=== PATIENT | female | born 1955 | race Caucasian/White ===

== ENCOUNTER 2016-08-03 17:50 | Emergency (ER) | payer OTHER ==
[~2016-08-03] VITALS: Ht 154.9 cm; Wt 88.0 kg
[~2016-08-03 17:50] MED LIST: ALEVE220 MG; ASPIRIN325; BACTRIM DS TAB1 EACH PO; IBUPROFEN200 M2 PO; LAMOTRIGINE200 MG PO; NORCO 5-325 TA1 EACH PO; PHENTERMINE H37.5 MG PO
[2016-08-03 18:43] LABS: ABSOLUTE NEUTROPHILS 8.5 thou/uL (1.4-8.2); BASOPHILS 0.7 % (0.0-2.0); EOSINOPHILS 6.1 % (0.0-3.0); HEMATOCRIT 37.1 % (37.0-47.0); LYMPHOCYTES 18.7 % (24.0-44.0); MCH 29.5 pg (26.0-34.0); MCHC 32.4 g/dL (28.0-37.0); MCV 91.2 fL (80.0-100.0); MONOCYTES 6.3 % (1.0-8.0); PLATELET COUNT 305 thou/uL (150-400); POLYS 68.2 % (36.0-66.0); RBC 4.07 mil/uL (4.20-5.00); RDW 12.5 % (10.5-14.5); WBC 12.4 thou/uL (4.0-11.0)
[2016-08-03 18:44] LABS: MANUAL DIFF NO
[2016-08-03 18:51] LABS: CALCIUM 9.3 mg/dL (8.5-10.1); CREATININE 0.7 mg/dL (0.6-1.0); POTASSIUM 3.4 mmol/L (3.5-5.1)
[2016-08-03] MEDS ORDERED: IBUPROFEN 600600 M1 PO (20:17)
[2016-08-03] MEDS ORDERED: NORCO 5-325 TA1 EACH PO (20:17)
[2016-08-03 20:48] VITALS: BP 134/50
== END 2016-08-03 20:49 | disposition home or self-care (01) ==
LOC: ER 17:50
PROVIDERS: Nurse Practitioner
DX: S80.01XA Contusion of right knee, initial encounter (principal); M25.551 Pain in right hip; F10.99 Alcohol use, unspecified with unspecified alcohol-induced disorder; W18.39XA Other fall on same level, initial encounter; Y93.89 Activity, other specified; Y92.480 Sidewalk as the place of occurrence of the external cause; Y99.8 Other external cause status

== ENCOUNTER → 2016-08-17 | Outpatient (CLI) | payer BC, OTHER ==
[~2016-08-17] MED LIST changes: +IBUPROFEN 600600 M1 PO
--- NOTE | ~2016-08-17 | CNG ---
[facility] [place] [address] CYTO-NONGYN REPORT PROCEDURE Name: SARY RAMOS Room #: REG [facility] Delores#: [id number] Admission: 08/17/16 Date of : 51 Discharge: Report #: [id number] Path Case #: [id number] CYTOPATHOLOGY REPORT COLLECTION DATE: 08/17/2016 RECEIVED DATE: 08/17/2016 SUBMITTING PHYS: Dr. Gus Fletcher OTHER PHYS: Dr. Oleg Muñoz CLINICAL HISTORY: Cath/Bronchoscopy/Cough/ Lung mass, R/O TB SPECIMEN(S) RECEIVED: A.Bronchoalveolar lavage, RUL * * * * * * * * * * * * FINAL DIAGNOSIS: A. Lung, RUL, Bronchoalveolar lavage: - No malignant cells identified. Pulmonary macrophages, bronchial cells and inflammation identified. PATHOLOGIST: Yelitza Go M.D. REPORT ELECTRONICALLY SIGNED BY: Yelitza Go M.D. DATE/TIME: 08/18/2016 11:25 * * * * * * * * * * * * GROSS PATHOLOGY: A. Bronchoalveolar lavage, RUL: The specimen is submitted unfixed, labeled "Isela Fontana". Received by the Cytology Department is 15 mL of cloudy colorless fluid. One ThinPrep slide was prepared. (mm 08.17.2016) NATUROPATHIC DOCTOR(S): [facility]UNIOR Jovel[facility] INITIAL CPT CODE(S): A; 37529 Professional services performed by [facility] at [facility] [address], [place] [address] Technical services performed by [facility] at [address] [place] [address]., [address], [place] [address]. [facility] [address] [place] [address], [facility] [address] [place] [address] PHONE: [phone] [facility] [address] [place] [address] CYTO-NONGYN REPORT PROCEDURE Name: SARY RAMOS Room #: REG MILY Hernandez.#: [id number] Admission: 08/17/16 Date of : 51 Discharge: Report #: [id number] Path Case #: [id number] DIRECTOR: Danny Hsu M.D. * * * END OF REPORT * * *
--- NOTE | ~2016-08-17 | P ---
[facility] [place] [address] PROCEDURE REPORT Name: SARY RAMOS Room #: REG CL Delores#: [id number] Admission: 08/17/16 Attend Phys: Gus Fletcher MD Discharge: Date of : 51 Report #: [id number] THIS REPORT FOR: //name// CC: Gus Muñoz DATE OF SERVICE: 08/17/2016 PROCEDURE: Fiberoptic bronchoscopy with microscopic protected specimen brush in the right upper lobe with bronchioalveolar lavage. INDICATION: Nodular infiltrates, history of tuberculosis, worrisome for active infectious process including tuberculosis. ASA classification class 2. PROCEDURE NOTATION: After discussing risks and benefits of planned procedure with the patient, she desired to proceed. After obtaining informed consent, she was brought to cathode ray tube salvage processor room 3 where she was placed on continuous cardiopulmonary monitoring and supplemental oxygen. I was very careful to minimize any potential exposure to tuberculosis as patient has a concern for active TB. The mask was put in place prior to transporting directly to the cathode ray tube salvage processor room 3. The patient was placed on continuous cardiopulmonary monitoring and supplemental oxygen, then given 4% lidocaine nebulized to anesthetize the upper respiratory tract. Once accomplished, she received conscious sedation, a total 4 mg of Versed and 25 mcg of fentanyl were titrated during the procedure to provide adequate sedation. Once complete, bronchoscope was passed through an oral biteblock until the vocal cords were visualized. Vocal cords moved appropriately both before and after procedure. Lidocaine 1% was instilled in the tracheobronchial tree to provide topical anesthesia. Once complete, airways were surveyed. FINDINGS: Mainstem, lobar, segmental and subsegmental bronchi were explored with no significant anatomic variation or endobronchial disease. There were significant white thick mucus secretions coming from bilateral upper lobes. This was sampled using microscopic protected specimen brush and subsequent bronchioalveolar lavage with some cloudy return. The patient tolerated well. No noted complications. IMPRESSION: Nodular pulmonary infiltrate prominently right upper lobe, status post bronchoscopy with procedure as above, significant concerns for active tuberculosis. PLAN: The patient advised prior procedure and her friend, Bandar, advised after procedure, the patient needs to remain at home and avoid any public places until [facility] [address] [place] [address] PROCEDURE REPORT Name: MIRLANDE JOHNSONSARY Room #: REG [facility]#: [id number] Admission: 08/17/16 Attend Phys: Gus Fletcher MD Discharge: Date of : 51 Report #: [id number] confirmation no active TB, might be communicable. Would await microbiologic tests. By: 0924 1130 Gus Fletcher MD /nt
== END | disposition home or self-care (01) ==
LOC: CATH 07:13
DX: A15.9 Respiratory tuberculosis unspecified (principal)

== ENCOUNTER 2017-03-07 22:00 | Emergency (ER) | payer OTHER, BC ==
[~2017-03-07] VITALS: Ht 154.9 cm; Wt 86.2 kg
[2017-03-07] MEDS ORDERED: NAPROXEN375 MG PO (23:27)
[2017-03-07] MEDS ORDERED: TRAMADOL 50 MG50 MG PO (23:27)
[2017-03-08 00:02] LABS: AMP/METHAMP Negative (Negative); BARBITURATES Negative (Negative); BENZODIAZEPINES Negative (Negative); COCAINE Negative (Negative); METHADONE Negative (Negative); OPIATES Negative (Negative); PCP Negative (Negative)
== END 2017-03-08 00:35 | disposition home or self-care (01) ==
LOC: ER 22:00
PROVIDERS: Emergency Medicine
DX: S10.83XA Contusion of other specified part of neck, initial encounter (principal); S40.011A Contusion of right shoulder, initial encounter; S70.01XA Contusion of right hip, initial encounter; W01.0XXA Fall on same level from slipping, tripping and stumbling without subsequent striking against object, initial encounter; Y93.89 Activity, other specified; Y92.89 Other specified places as the place of occurrence of the external cause; Y99.0 Civilian activity done for income or pay

== ENCOUNTER 2017-04-29 22:16 | Emergency (ER) | payer BC, OTHER ==
[~2017-04-29] VITALS: Ht 154.9 cm; Wt 85.3 kg
--- NOTE | ~2017-04-29 | EKG ---
[address] [place] [address] ELECTROCARDIOGRAM REPORT Name: SARY RAMOS [id number] Admission: 04/29/17 Attend Phys: Discharge: 04/29/17 Date of : 51 Report #: [id number] THIS REPORT FOR: //name// [facility] ED Test Date: 2017-04-29 Test Time: 22:20:58 Pat Name: SARY JOHNSON Department: Room: Gender: F Arcade Attendant: JOHAN : 1955 Requested By: Jesús Gregorio Order Number: [id number] MD: Javed Mcdermott Measurements Intervals [place] Rate: 77 P: 26 [place]: 124 QRS: 14 QRSD: 96 T: 34 QT: 367 QTc: 416 Interpretive Statements Sinus rhythm No significant abnormality Compared to ECG 11/18/2009 15:24:33 No significant changes Electronically Signed On 04-30-2017 8:43:46 ENTRE[employer]IAL FINANCE PROFESSOR by Javed Mcdermott [email or web address] <ELECTRONICALLY SIGNED> By: Javed Mcdermott MD, [facility] 04/30/17 0843 2220 19 Javed Mcdermott MD, FACC /EPI
[~2017-04-29 22:16] MED LIST changes: +NAPROXEN375 MG PO; +TRAMADOL 50 MG50 MG PO
[2017-04-29 22:41] LABS: ABSOLUTE NEUTROPHILS 7.6 thou/uL (1.4-8.2); BASOPHILS 0.8 % (0.0-2.0); HEMATOCRIT 35.2 % (37.0-47.0); HEMOGLOBIN 11.5 gm/dL (12.0-15.0); LYMPHOCYTES 17.9 % (24.0-44.0); MCH 29.5 pg (26.0-34.0); MCHC 32.7 g/dL (28.0-37.0); MCV 90.3 fL (80.0-100.0); MONOCYTES 6.8 % (1.0-8.0); PLATELET COUNT 342 thou/uL (150-400); POLYS 66.5 % (36.0-66.0); RDW 12.8 % (10.5-14.5); WBC 11.4 thou/uL (4.0-11.0)
[2017-04-29 22:46] LABS: ANION GAP 8 mmol/L (7-16); BUN 16 mg/dL (7-18); CALCIUM 8.7 mg/dL (8.5-10.1); CHLORIDE 104 mmol/L (98-107); CO2 28 mmol/L (21-32); CREATININE 0.7 mg/dL (0.6-1.0); GLUCOSE 107 mg/dL (74-106); POTASSIUM 3.4 mmol/L (3.5-5.1); SODIUM 140 mmol/L (136-145)
[2017-04-29 22:55] LABS: ALBUMIN 3.2 g/dL (3.4-5.0); SGOT 15 U/L (15-37); SGPT 20 U/L (30-65); TOTAL BILIRUBIN 0.3 mg/dL (<0.1-1.0); TOTAL PROTEIN 7.4 g/dL (6.4-8.2); TROPONIN-I < 0.04 ng/mL (<0.06)
[2017-04-29] MEDS ORDERED: FLEXERIL PO (23:02)
== END 2017-04-29 23:22 | disposition home or self-care (01) ==
LOC: ER 22:16
PROVIDERS: Emergency Medicine
DX: R07.89 Other chest pain (principal)

== ENCOUNTER 2018-02-27 21:04 | Emergency (ER) | payer BC, OTHER ==
[~2018-02-27] VITALS: Ht 154.9 cm; Wt 83.5 kg
[~2018-02-27 21:04] MED LIST changes: +FLEXERIL PO
[2018-02-27 21:41] LABS: ABSOLUTE NEUTROPHILS 9.6 thou/uL (1.4-8.2); BASOPHILS 0.4 % (0.0-2.0); EOSINOPHILS 1.1 % (0.0-3.0); HEMATOCRIT 35.6 % (37.0-47.0); HEMOGLOBIN 12.1 gm/dL (12.0-15.0); LYMPHOCYTES 5.9 % (24.0-44.0); MCH 30.1 pg (26.0-34.0); MCV 88.5 fL (80.0-100.0); MONOCYTES 4.4 % (1.0-8.0); PLATELET COUNT 307 thou/uL (150-400); POLYS 88.2 % (36.0-66.0); RBC 4.02 mil/uL (4.20-5.00); RDW 13.1 % (10.5-14.5); WBC 10.9 thou/uL (4.0-11.0)
[2018-02-27 21:48] LABS: CALCIUM 8.8 mg/dL (8.5-10.1); CREATININE 0.8 mg/dL (0.6-1.0); POTASSIUM 3.3 mmol/L (3.5-5.1)
--- NOTE | 2018-02-27 22:15 | EKG ---
[place] [address] [facility] [place] [address] ELECTROCARDIOGRAM REPORT Name: SARY RAMOS [facility]: [id number] Admission: 02/27/18 Attend Phys: Discharge: Date of : 51 Report #: [id number] THIS REPORT FOR: //name// [facility] ED Test Date: 2018-02-27 Test Time: 21:29:34 Pat Name: SARY JOHNSON Department: Room: Gender: F Sql Server Bi Developer: JOHNNY : 1955 Requested By: Brenda Beck Order Number: [id number] MD: John Garcia Measurements Intervals [place] Rate: 109 P: 49 [place]: 131 QRS: 16 QRSD: 75 T: 36 QT: 301 QTc: 406 Interpretive Statements Sinus tachycardia left atrial enlargement Compared to ECG 04/29/2017 22:20:58 No significant changes Electronically Signed On 02-27-2018 22:15:08 CANDY POLISHER by John Garcia [email or web address] <ELECTRONICALLY SIGNED> By: John Garcia MD 02/27/18 2215 28 28 John Garcia MD /MAHAD
[2018-02-27 23:28] LABS: URINE BILIRUBIN NEGATIVE (Negative); URINE BLOOD NEGATIVE (Negative); URINE CLARITY CLEAR; URINE COLOR YELLOW; URINE GLUCOSE-RANDOM* NEGATIVE (Negative); URINE KETONES NEGATIVE (Negative); URINE LEUKOCYTES-REFLEX NEGATIVE (Negative); URINE NITRITE-REFLEX NEGATIVE (Negative); URINE PROTEIN (DIPSTICK) NEGATIVE (Negative); URINE SPECIFIC GRAVITY <= 1.005 (1.005-1.035); URINE UROBILINOGEN 0.2 E.U./dl (0.2-1.0)
[2018-02-28 00:09] VITALS: BP 116/48
== END 2018-02-28 00:10 | disposition home or self-care (01) ==
LOC: ER 21:04
PROVIDERS: Student in an Organized Health Care Education/Training Program
DX: J09.X2 Influenza due to identified novel influenza A virus with other respiratory manifestations (principal); K50.90 Crohn's disease, unspecified, without complications; Z86.718 Personal history of other venous thrombosis and embolism

== ENCOUNTER → 2018-12-09 | Outpatient (CLI) | payer BC, OTHER | LOC: RAD 09:33 | DX: R91.1 Solitary pulmonary nodule (principal) ==

== ENCOUNTER 2019-05-09 12:06 | Emergency (ER) | payer BC, OTHER ==
[~2019-05-09] VITALS: Ht 154.9 cm; Wt 80.3 kg
[2019-05-09 12:51] LABS: ABSOLUTE NEUTROPHILS 5.3 thou/uL (1.4-8.2); EOSINOPHILS 6.5 % (0.0-3.0); HEMATOCRIT 39.1 % (37.0-47.0); MCH 30.1 pg (26.0-34.0); MCHC 33.2 g/dL (28.0-37.0); MCV 90.5 fL (80.0-100.0); MONOCYTES 5.8 % (1.0-8.0); PLATELET COUNT 337 thou/uL (150-400); POLYS 67.7 % (36.0-66.0); RBC 4.31 mil/uL (4.20-5.00); RDW 12.7 % (10.5-14.5); WBC 7.8 thou/uL (4.0-11.0)
[2019-05-09 13:00] LABS: ANION GAP 6 mmol/L (7-16); BUN 10 mg/dL (7-18); CALCIUM 9.9 mg/dL (8.5-10.1); CHLORIDE 101 mmol/L (98-107); CO2 31 mmol/L (21-32); CREATININE 0.7 mg/dL (0.6-1.0); GLUCOSE 97 mg/dL (74-106); POTASSIUM 4.1 mmol/L (3.5-5.1); SODIUM 138 mmol/L (136-145)
[2019-05-09 13:10] LABS: ALBUMIN 3.4 g/dL (3.4-5.0); SGOT 13 U/L (15-37); SGPT 12 U/L (30-65); TOTAL BILIRUBIN 0.8 mg/dL (<0.1-1.0); TOTAL PROTEIN 7.9 g/dL (6.4-8.2); TROPONIN-I <0.06 ng/mL (<0.06)
[2019-05-09] MEDS ORDERED: MELOXICAM7.5 MG PO (14:32)
[2019-05-09] MEDS ORDERED: PREDNISONE 10 M10 M1 PO (15:26)
[2019-05-09] MEDS ORDERED: LEVAQUIN 500 M500 M1 PO (15:26)
[2019-05-09] MEDS ORDERED: VENTOLIN HFA 1818 GM INH (15:39)
[2019-05-09 16:10] VITALS: BP 137/59
--- NOTE | 2019-05-12 08:03 | EKG ---
[facility] [place] [address] ELECTROCARDIOGRAM REPORT Name: SARY RAMOS Room #: DEP [facility]#: [id number] Admission: 05/09/19 Attend Phys: Discharge: 05/09/19 Date of : 51 Report #: [id number] THIS REPORT FOR: cc: Noa Martinez MD, Melanie MD Lundgren,Javed White MD [facility] ~ THIS REPORT FOR: //name// [facility] ED Test Date: 2019-05-09 Test Time: 13:20:40 Pat Name: SARY JOHNSON Department: Room: Gender: F Account Director: carter : 1955 Requested By: Saleem Morrow Order Number: [id number] MD: Javed Mcdermott Measurements Intervals [place] Rate: 73 P: 53 [place]: 137 QRS: 3 QRSD: 90 T: 21 QT: 411 QTc: 453 Interpretive Statements Sinus rhythm Poor R wave progression Compared to ECG 02/27/2018 21:29:34 Sinus tachycardia no longer present Electronically Signed On 05-12-2019 8:02:30 CDT by Javed Mcdermott [email or web address] <ELECTRONICALLY SIGNED> By: Javed Mcdermott MD, [facility] 05/12/19 0802 1320 1320 Javed Mcdermott MD, [facility] /EPI
== END 2019-05-09 16:15 | disposition home or self-care (01) ==
LOC: ER 12:06
PROVIDERS: Emergency Medicine
DX: J18.9 Pneumonia, unspecified organism (principal); J98.01 Acute bronchospasm; R91.1 Solitary pulmonary nodule; Z79.899 Other long term (current) drug therapy

== ENCOUNTER → 2019-09-10 | Outpatient (CLI) | payer BC, OTHER ==
[~2019-09-10] MED LIST changes: +LEVAQUIN 500 M500 M1 PO; +MELOXICAM7.5 MG PO; +PREDNISONE 10 M10 M1 PO; +VENTOLIN HFA 1818 GM INH
== END ==
LOC: LAB 13:42
PROVIDERS: ATTEND Internal Medicine Pulmonary Disease
DX: Z20.828 Contact with and (suspected) exposure to other viral communicable diseases (principal)

== ENCOUNTER → 2019-10-06 | Outpatient (CLI) | payer BC, OTHER ==
[~2019-10-06] MED LIST changes: +ADVIL200 M1 PO; +BENZONATATE100 MG PO; +LAMICTAL150 MG PO; -LAMOTRIGINE200 MG PO; +PROAIR HFA8.5 GM INH; +VITAMIN D310 MC1 PO; +[UNRECOGNIZED DRUG - OTHER] PO; +[UNRECOGNIZED DRUG - OTHER] PO; +[UNRECOGNIZED DRUG - OTHER] PO
== END ==
LOC: LAB 14:22
PROVIDERS: ATTEND Internal Medicine Pulmonary Disease
DX: Z01.812 Encounter for preprocedural laboratory examination (principal); Z11.59 Encounter for screening for other viral diseases

== ENCOUNTER → 2019-10-10 | Outpatient (CLI) | payer BC, OTHER ==
[~2019-10-10] VITALS: Ht 154.9 cm; Wt 83.5 kg
[2019-10-10 11:32] VITALS: BP 158/89
[2019-10-10 14:46] LABS: BF NUCLEATED CELLS 155 /mm3; BF RBC 1782 /mm3
[2019-10-10 14:51] LABS: CLARITY CLOUDY; COLOR STRAW; TOTAL VOLUME 15 mL
[2019-10-10 16:05] LABS: BF NEUTROPHILS 60 %; SOURCE BAL
[2019-10-10 16:06] LABS: BF MACROPHAGE 12 %
--- NOTE | 2019-10-14 16:06 | PATH ---
[facility] [address] [place] [address] PATHOLOGY RPT PROCEDURE Name: SARY RAMOS Room #: REG MILY Nic.#: [id number] Admission: 10/10/19 Date of : 51 Discharge: Report #: [id number] Path Case #: [id number] Note [facility] Accession Number: [id number] TESTS RESULT FLAG UNITS REF RANGE LAB Clinician Provided Cytology Information No. of containers..01 Other (Miscellaneous) Source: 01 RUL BAL DIAGNOSIS: 02 RUL BAL NEGATIVE FOR MALIGNANT EPITHELIAL CELLS. REACTIVE BRONCHIAL CELLS ARE PRESENT. PULMONARY MACROPHAGES (DUST CELLS) ARE PRESENT. Pathologist ICD10: 02 R06.02 Signed out by: 02 Yelitza Go MD, Pathologist NPI- [id number] Performed by: 01 Belle Villalpando Merchant Banker ([facility]) Gross description: 01 5 ML, CLEAR COLORLESS, 1 TP /LCS 10/13/2019 0832 Local FLAG LEGEND: L-Low Normal,H-High Normal,LL-Alert Low,HH-Alert High <-Panic Low,>-Panic High,A-Abnormal,AA-Critical Abnormal Performed at: [address] [place] [address] Calos Zafar MD, [address] [address] Yelitza Go MD, Specimen Comment: A courtesy copy of this report has been sent to [phone], [phone] Specimen Comment: [id number] Specimen Comment: Report sent to DR GARZA / DR DENG Performed at: [address], [place], [place] [id number] MD Calos Zafar MD Phone: [phone]
== END ==
LOC: PUL 09:34
PROVIDERS: ATTEND Internal Medicine Pulmonary Disease
DX: R91.1 Solitary pulmonary nodule (principal); R91.8 Other nonspecific abnormal finding of lung field; Z90.49 Acquired absence of other specified parts of digestive tract; Z79.899 Other long term (current) drug therapy; Z98.890 Other specified postprocedural states
CPT/HCPCS: 50010; 62110; 62900; 70005

== ENCOUNTER 2020-09-11 09:45 | Emergency (ER) | payer BC, OTHER ==
[~2020-09-11] VITALS: Ht 154.9 cm; Wt 88.5 kg
[2020-09-11 10:53] LABS: ABSOLUTE NEUTROPHILS 8.7 thou/uL (1.4-8.2); BASOPHILS 1.1 % (0.0-2.0); EOSINOPHILS 4.2 % (0.0-3.0); HEMATOCRIT 37.7 % (37.0-47.0); HEMOGLOBIN 12.3 gm/dL (12.0-15.0); LYMPHOCYTES 12.7 % (24.0-44.0); MCHC 32.6 g/dL (28.0-37.0); MCV 88.8 fL (80.0-100.0); MONOCYTES 4.8 % (1.0-8.0); PLATELET COUNT 350 thou/uL (150-400); POLYS 77.2 % (36.0-66.0); RBC 4.24 mil/uL (4.20-5.00); RDW 13.4 % (10.5-14.5); WBC 11.2 thou/uL (4.0-11.0)
[2020-09-11 11:02] LABS: ANION GAP 7 mmol/L (7-16); BUN 11 mg/dL (7-18); CHLORIDE 104 mmol/L (98-107); CO2 29 mmol/L (21-32); CREATININE 0.7 mg/dL (0.6-1.0); GLUCOSE 100 mg/dL (74-106); POTASSIUM 3.9 mmol/L (3.5-5.1); SODIUM 140 mmol/L (136-145)
[2020-09-11 11:13] LABS: ALBUMIN 3.4 g/dL (3.4-5.0); SGOT 15 U/L (15-37); SGPT 16 U/L (30-65); TOTAL BILIRUBIN 0.8 mg/dL (0.2-1.0); TROPONIN-I <0.06 ng/mL (<0.06)
[2020-09-11 11:55] VITALS: BP 135/60
--- NOTE | 2020-09-12 14:30 | EKG ---
[place] [address] [facility] [place] [address] ELECTROCARDIOGRAM REPORT Name: SARY RAMOS [id number] Admission: 09/11/20 Attend Phys: Discharge: 09/11/20 Date of : 51 Report #: [id number] [facility] ED Test Date: 2020-09-11 Test Time: 10:14:55 Pat Name: SARY JOHNSON Department: Room: Gender: F Barrel Cutter: GREGORIA : 1955 Requested By: Luke Key Order Number: [id number] MD: Javed Mcdermott Measurements Intervals [place] Rate: 94 P: 6 [place]: 124 QRS: 16 QRSD: 87 T: 46 QT: 340 QTc: 426 Interpretive Statements Sinus rhythm No significant abnormality Compared to ECG 05/09/2019 13:20:40 Poor R-wave progression no longer present Electronically Signed On 09-12-2020 14:30:45 CDT by Javed Mcdermott [email or web address] <ELECTRONICALLY SIGNED> By: Javed Mcdermott MD, [facility] 09/12/20 1430 1014 1014 Javed Mcdermott MD, FACC /EPI
== END 2020-09-11 11:55 | disposition home or self-care (01) ==
LOC: ER 09:45
PROVIDERS: Emergency Medicine
DX: J06.9 Acute upper respiratory infection, unspecified (principal); R05 Cough; Z79.891 Long term (current) use of opiate analgesic; Z79.51 Long term (current) use of inhaled steroids; Z79.899 Other long term (current) drug therapy; Z20.822 Contact with and (suspected) exposure to COVID-19